=== PATIENT | female | born 1980 | race Caucasian/White ===

== ENCOUNTER 2017-09-24 23:05 | Emergency (ER) | payer OTHER ==
[2017-09-24 23:58] LABS: BASO % 0.4 % (0.0-2.0); EOS # 0.1 K/uL (0.0-0.7); HEMOGLOBIN 12.6 g/dL (11.0-16.0); LYMPH # 1.8 K/uL (1.0-4.3); LYMPH % 23.9 % (20.0-40.0); MEAN CELL VOLUME 89.1 fL (81.0-99.0); MEAN CORPUSCULAR HEMOGLOBIN 31.3 pg (27.0-31.0); MEAN CORPUSCULAR HGB CONC 35.1 g/dL (33.0-37.0); MEAN PLATELET VOLUME 9.9 fL (7.2-11.7); MONO # 0.8 K/uL (0.0-0.8); MONO % 11.2 % (0.0-10.0); NEUT # 4.8 K/uL (1.8-7.0); NEUT % 63.5 % (50.0-75.0); RBC 4.02 Mil/uL (3.80-5.20); RED CELL DISTRIBUTION WIDTH 13.6 % (11.5-14.5); WHITE BLOOD COUNT 7.6 K/uL (4.8-10.8)
[2017-09-25 00:01] LABS: SQUAMOUS EPITHIAL < 1 /hpf (0-5); URINE BACTERIA OCC (<OCC); URINE BILIRUBIN NEGATIVE (NEGATIVE); URINE CLARITY Hazy (Clear); URINE COLOR Colorless (YELLOW); URINE GLUCOSE (UA) NORMAL (Normal); URINE LEUKOCYTE ESTERASE NEG Leu/uL (Negative); URINE PROTEIN NEGATIVE (NEGATIVE); URINE UROBILINOGEN NORMAL mg/dL (0.2-1.0)
[2017-09-25 00:11] LABS: ALB/GLOB RATIO 1.4 (1.0-2.1); ALBUMIN 4.5 g/dL (3.5-5.0); ALT/SGPT 10 U/L (9-52); AST/SGOT 21 U/L (14-36); BLOOD UREA NITROGEN 11 mg/dL (7-17); CALCIUM 9.5 mg/dl (8.6-10.4); GFR AFRICAN-AMERICAN > 60; GFR NON-AFRICAN AMERICAN > 60
[2017-09-25 00:22] LABS: URINE BLOOD NEGATIVE (NEGATIVE)
[2017-09-25] MEDS ORDERED: Sodium Chloride 0.9% 1,000 ML IV ONE (01:14)
--- NOTE | 2017-09-25 01:15 | C.PDOC ---
History Of Present Illness 37 year old female presents to the emergency department with complaints of sharp , stabbing, left flank pain which radiates to her groin. Patient reports some nausea and diarrhea but denies vomiting. Patient has a history of kidney stones. Time Seen by Provider: 09/25/17 01:13 Chief Complaint (Nursing): Abdominal Pain History Per: Patient History/Exam Limitations: no limitations Onset/Duration Of Symptoms: Hrs Current Symptoms Are (Timing): Still Present Location Of Pain/Discomfort: Other (left flank) Radiation Of Pain To:: Other (groin) Quality Of Discomfort: Sharp, Stabbing, "Pain" Associated Symptoms: Nausea, Diarrhea. denies: Vomiting Past Medical History Reviewed: Historical Data, Nursing Documentation, Vital Signs Vital Signs: Last Vital Signs Temp 98.3 F 09/24/17 23:09 Pulse 69 09/24/17 23:09 Resp 16 09/24/17 23:09 BP 114/68 09/24/17 23:09 Pulse Ox 100 09/25/17 01:50 - Medical History PMH: Anemia, Kidney Stones Surgical History: Endoscopy Family History: States: No Known Family Hx - Social History Hx Alcohol Use: No Hx Substance Use: No Review Of Systems Gastrointestinal: Positive for: Nausea, Diarrhea. Negative for: Vomiting Genitourinary: Positive for: Pelvic Pain Musculoskeletal: Positive for: Back Pain (left flank pain) Physical Exam - Physical Exam Appears: Non-toxic, No Acute Distress Skin: Warm, Dry Head: Atraumatic Eye(s): bilateral: Normal Inspection Oral Mucosa: Moist Neck: Trachea Midline, Supple Chest: Symmetrical Cardiovascular: Rhythm Regular, No Murmur Respiratory: No Rales, No Rhonchi, No Wheezing Gastrointestinal/Abdominal: Soft, No Tenderness, No Guarding, No Rebound Back: Other (tenderness to left flank) Extremity: Normal ROM Extremity: Bilateral: Atraumatic Pulses: Left Dorsalis Pedis: Normal, Right Dorsalis Pedis: Normal Neurological/Psych: Oriented x3 ED Course And Treatment - Laboratory Results Result Diagrams: 09/24/17 23:55 09/24/17 23:55 O2 Sat by Pulse Oximetry: 100 (RA) Pulse Ox Interpretation: Normal Progress Note: Plan: CT Abdomen and Pelvis w/o Contrast. CMP. CBC. NaCl IV Fluids. Toradol 30mg IVP. Zofran 4mg IVP. 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 I have reviewed the chart and agree that the record accurately reflects my personal performance of the history, physical exam, medical decision making, and the department course for this patient. I have also personally directed, reviewed, and agree with the discharge instructions and disposition.
[2017-09-25] MEDS ORDERED: Sodium Chloride 0.9% 0 ML ONE (01:45)
[2017-09-25] MEDS ORDERED: Sodium Chloride 0.9% 1,000 ML ONE (02:34)
--- NOTE | 2017-09-25 03:22 | CT ---
EXAM: CT Abdomen and Pelvis Without Intravenous Contrast CLINICAL HISTORY: 37 years old, female; Pain; Abdominal pain; Prior surgery; Additional info: Left flank pain, HX of kidney stones TECHNIQUE: Axial computed tomography images of the abdomen and pelvis without intravenous contrast. All CT scans at this facility use one or more dose reduction techniques, viz.: automated exposure control; ma/kV adjustment per patient size (including targeted exams where dose is matched to indication; i.e. head); or iterative reconstruction technique. 595 images are submitted. Coronal and sagittal reformatted images were created and reviewed. COMPARISON: No relevant prior studies available. FINDINGS: Limitations: Absence of IV contrast decreases sensitivity for detecting vascular and visceral injury and abnormality. Lung bases: Unremarkable. No mass. No consolidation. ABDOMEN: Liver: Unremarkable. Gallbladder and bile ducts: Unremarkable. No ductal dilation. Pancreas: Unremarkable. No ductal dilation. Spleen: Unremarkable. No splenomegaly. Adrenals: Unremarkable. No mass. Kidneys and ureters: Nonobstructive left renal stones. Stomach and bowel: Large amount of stool in the colon. Correlation with patient's clinical history of constipation is recommended. No mucosal thickening.There is stool like appearance to the terminal ileum. This may represent slow transit. PELVIS: Appendix: Normal appendix. Bladder: Bladder distention. Correlation with patient's voiding status is recommended. Reproductive: Left ovarian hypodense cysts measuring 4.9 x 2.6 cm. Uterus is seen. ABDOMEN and PELVIS: Intraperitoneal space: Small amount of free pelvic fluid. No free air. Bones/joints: No acute fracture. No dislocation. Soft tissues: Unremarkable. Vasculature: The aorta is normal in caliber and there are no jia-aortic collections. Lymph nodes: Unremarkable. No enlarged lymph nodes. IMPRESSION: 1. Left ovarian hypodense cysts measuring 4.9 x 2.6 cm.If clinically warranted, a pelvic ultrasound may be helpful for further assessment. 2. Small amount of free pelvic fluid. Correlation with clinical [employer] history evaluation and further workup or followup as recommended by patient's clinical data.
[2017-09-25 03:47] VITALS: BP 105/70; PULSE 72; RESP 20; TEMP 97.2; O2SAT 99
== END 2017-09-25 03:46 | disposition home or self-care (01) ==
LOC: C.ER 23:05
DX: N83.202 Unspecified ovarian cyst, left side (principal)
CPT/HCPCS: 74176; 80053; 81001; 85025; 87086; 96374; 96375; 99284; J1885; J2405; J7030